=== PATIENT | female | born 1995 ===

== ENCOUNTER 2017-04-25 08:42 | Outpatient (CLI) | payer OTHER | END 2017-04-25 08:43 | disposition home or self-care (01) | LOC: BICULT 08:42 | PROVIDERS: ATTEND Physician Assistant | DX: R10.2 Pelvic and perineal pain (principal); N85.4 Malposition of uterus; R93.8 Abnormal findings on diagnostic imaging of other specified body structures | CPT/HCPCS: 76856 ==